=== PATIENT | female | born 1960 | race Caucasian/White ===

== ENCOUNTER → 2017-11-30 | Outpatient (CLI) | payer BC ==
--- NOTE | 2017-11-30 12:22 | ECHOF ---
Referral Reason:R06.00 Dyspnea MEASUREMENTS -------- HEIGHT: 157.5 cm WEIGHT: 49.0 kg BP: RVIDd: 2.1 cm (< 3.3) IVSd: 0.8 cm (0.6 - 1.1) LVIDd: 3.3 cm (3.9 - 5.3) LVPWd: 0.8 cm (0.6 - 1.1) IVSs: 0.8 cm LVIDs: 2.8 cm LVPWs: 1.1 cm LA Diam: 1.9 cm (2.7 - 3.8) Ao Diam: 2.8 cm (2.0 - 3.7) AV Cusp: 1.8 cm (1.5 - 2.6) LA Diam: 3.0 cm (2.7 - 3.8) EPSS: 0.3 cm MV E Ron: 0.68 m/s MV DecT: 158 ms MV A Ron: 0.51 m/s MV E/A Ratio: 1.34 RAP: 5.00 mmHg RVSP: 26.41 mmHg MV EF SLOPE: 61.00 mm/s (70 - 150) MV EXCURSION: 2.22 cm (> 18.000) FINDINGS -------- Sinus rhythm. This was a technically adequate study. Pt. Has Breast inplants LV size, wall thickness and systolic function are normal, with an EF greater than 55%. The left zheng tricular size is normal. The right ventricle is normal in size. The left atrial size is normal. The right atrial size is normal. The aortic valve is trileaflet, and appears structurally normal. No aortic stenosis or regurgitation. Mild mitral regurgitation is present. Mild tricuspid regurgitation present. There is no evidence of pulmonary hypertension. The right v entricular systolic pressure, as measured by Doppler, is 26.41mmHg. There is no pulmonic regurgitation present. The aortic root size is normal. There is no pericardial effusion. CONCLUSIONS -------- 1. Sinus rhythm. 2. Pt. Has Breast inplants 3. LV size, wall thickness and systolic function are normal, with an EF greater than 55%. 4. The left ventricular size is normal. 5. The right ventricle is normal in size. 6. The left atrial size is normal. 7. The right atrial size is normal. 8. The aortic valve is trileaflet, and appears structurally normal. No aortic stenosis or regurgitati on. 9. Mild mitral regurgitation is present. 10. Mild tricuspid regurgitation present. 11. There is no evidence of pulmonary hypertension. 12. The right ventricular systolic pressure, as measured by Doppler, is 26.41mmHg. 13. There is no pulmonic regurgitation present. 14. The aortic root size is normal. 15. There is no pericardial effusion. EXTERMINATOR TERMITE: Danica Sage RDCS
--- NOTE | 2017-11-30 12:38 | EST ---
EXERCISE STRESS DATE OF SERVICE: 11/30/2017 AGE: 57 SEX: Female HT: 5'2" WT: 108 PROTOCOL: Exercise treadmill stress test STAGE: IV DURATION OF EXERCISE: 12 minutes and 26 seconds HEART RATE REST: 70 BLOOD PRESSURE REST: 108/69 MAXIMUM HEART RATE ACHIEVED: 166 MAXIMUM BLOOD PRESSURE: 182/97 85% MPHR: 139 100% MPHR: 164 METS: 12.5 INDICATIONS: Chest pain. CLINICAL INFORMATION: STRESS DATA: Pretesting physical examination showed a heart rate of 70. Pressure is 108/69 mmHg. Baseline EKG showed sinus mechanism. The patient exercised on the treadmill according to Johnny protocol for a total of 12 minutes and 26 seconds and achieved 12.5 METs. Max heart rate is 166, which is about 100% of maximum predicted heart rate. Maximum blood pressure was 182/97 mmHg. Clinically, the patient did not have any symptoms of chest pain or chest discomfort during the testing or in the recovery phase. The EKG did not show any significant ST or T-wave abnormalities concerning for ischemia. CONCLUSION: 1. Excellent exercise capacity. 2. Normal EKG in response to exercise. 3. Essentially normal exercise treadmill stress test for the patient. MMODL / IJN: [id number] /
== END | disposition home or self-care (01) ==
LOC: RADNMMAIN 11:09
PROVIDERS: ATTEND Family Medicine
DX: I08.1 Rheumatic disorders of both mitral and tricuspid valves (principal); R06.00 Dyspnea, unspecified
CPT/HCPCS: 93017; 93306

== ENCOUNTER 2019-04-20 13:06 | Observation (INO) | payer BC ==
[2019-04-20] MEDS ORDERED: SODIUM CHLORIDE 0.9% 1,000 ML IV STA (14:13)
[2019-04-20] MEDS ORDERED: DIPH,PERTUS(ACELL)TETVAC-LF 0.5 ML VIAL IM ONE (14:14)
--- NOTE | 2019-04-20 14:18 | ED ---
General Adult HPI <Cooper Rodriguez P - Last Filed: 04/20/19 15:16> - General Source: patient, family, RN notes reviewed Mode of arrival: ambulatory Limitations: no limitations <Edy Marie - Last Filed: 04/20/19 16:12> - General Chief complaint: Fall Stated complaint: syncope/facial injury Time Seen by Provider: 04/20/19 13:56 - History of Present Illness Initial comments: Patient is a pleasant 58-year-old female presenting to the emergency Department with complaints of syncopal episode. Episode occurred around 6 AM. Patient got up to go the bathroom and did not feel well. After using the bathroom patient still did not feel well. Patient still feels slightly unwell. Patient states symptoms are mild and hard to describe. Patient feels a little bit lightheaded and fatigued. Patient had a syncopal episode after using the restroom. Patient did sustain facial injury when she fell. Patient is unclear how long she was lying on the floor 4. No chest pain or dyspnea. No abdominal or back pain. No history of similar episode previously. Unclear last tetanus immunization. (Edy Sánchez) - Related Data Allergies Allergy/AdvReac Type Severity Reaction Status Date / Time No Known Allergies Allergy Verified 04/20/19 13:42 Review of Systems ROS Other: All systems not noted in ROS Statement are negative. <Cooper Rodriguez P - Last Filed: 04/20/19 15:16> ROS Other: All systems not noted in ROS Statement are negative. Constitutional: Denies: fever Eyes: Denies: eye pain ENT: Denies: ear pain Respiratory: Reports: cough (Minimal cough past few days). Denies: dyspnea Cardiovascular: Denies: chest pain Endocrine: Reports: fatigue Gastrointestinal: Denies: abdominal pain Genitourinary: Denies: dysuria Musculoskeletal: Denies: back pain Skin: Denies: rash Neurological: Denies: headache, confusion <Edy Marie - Last Filed: 04/20/19 16:12> ROS Statement: Those systems with pertinent positive or pertinent negative responses have been documented in the HPI. 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 History of Any Multi-Drug Resistant Organisms: None Reported Past Surgical History: Appendectomy, Breast Surgery Additional Past Surgical History / Comment(s): colonoscopy Past Psychological History: No Psychological Hx Reported Smoking Status: Never smoker Past Alcohol Use History: None Reported Past Drug Use History: None Reported <Edy Marie - Last Filed: 04/20/19 16:12> General Exam Limitations: no limitations General appearance: alert, in no apparent distress Head exam: Present: other (Forehead and nasal soft tissue swelling and tenderness) Eye exam: Present: normal appearance, PERRL, EOMI. Absent: nystagmus ENT exam: Present: normal oropharynx Neck exam: Present: normal inspection. Absent: tenderness Respiratory exam: Present: normal lung sounds bilaterally Cardiovascular Exam: Present: regular rate, normal rhythm Expanded Peripheral pulses: 2+: Radial (R), Radial (L), Posterior Tibialis (R), Posterior Tibialis (L), Dorsalis Pedis (R), Dorsalis Pedis (L) GI/Abdominal exam: Present: soft. Absent: tenderness Extremities exam: Present: normal inspection. Absent: pedal edema, calf tenderness Neurological exam: Present: alert, oriented X3, CN II-XII intact. Absent: motor sensory deficit Expanded Neurological exam: Present: protecting the airway Speech: Present: fluid speech Cranial nerves: EOM's Intact: Normal Motor strength exam: RUE: 5, LUE: 5, RLE: 5, LLE: 5 Eye Response: (4) open spontaneously Motor Response: (6) obeys commands Verbal Response: (5) oriented Psychiatric exam: Present: normal affect, normal mood Skin exam: Present: normal color, other (NaSal and paranasal ecchymosis) <Edy Marie - Last Filed: 04/20/19 16:12> Course Vital Signs 04/20/19 13:38 Temperature 97.1 F L Pulse Rate 72 Respiratory 16 Rate Blood Pressure 120/73 O2 Sat by Pulse 100 Oximetry EKG Findings - EKG Comments: EKG Findings:: Normal sinus rhythm 78. NJ 144. QRS 74. QT 402. QTC 458. Normal axis. Normal QRS. No acute ST change. <Edy Marie - Last Filed: 04/20/19 16:12> Procedures - Laceration Laceration #1 Consent Obtained: verbal consent Indication: laceration Site: lip Size (cm): 2 Description: stellate Depth: simple, single layer Anesthetic Used: lidocaine 1% Anesthesia Technique: nerve block (infraorbital) Pre-repair: wound explored, irrigated extensively Type of Sutures: vicryl Size of Sutures: 5-0 Number of Sutures: 2 Technique: simple, interrupted Patient Tolerated Procedure: well, no complications <Cooper Rodriguez - Last Filed: 04/20/19 15:16> Medical Decision Making - Lab Data Result diagrams: 04/20/19 14:18 04/20/19 14:18 <Cooper Rodriguez - Last Filed: 04/20/19 15:16> - Lab Data Result diagrams: 04/20/19 14:18 04/20/19 14:18 - Radiology Data Radiology results: report reviewed (Computed tomography scan of the brain and facial bones shows no acute traumatic process. Forehead hematoma.), image reviewed (Chest x-ray shows no acute process) <Edy Marie - Last Filed: 04/20/19 16:12> - Medical Decision Making Patient reevaluated and resting comfortably in bed. Case was discussed in detail with Dr. shannon nelson, who will admit for observation for monitoring and echo in the morning, covering for Dr. Tate, who admits for Dr. Rodgers. (Edy Marie) - Lab Data Lab Results 04/20/19 04/20/19 04/20/19 Range/Units 14:18 14:18 14:18 WBC 4.5 (3.8-10.6) k/uL RBC 4.30 (3.80-5.40) m/uL Hgb 13.3 (11.4-16.0) gm/dL Hct 38.7 (34.0-46.0) % MCV 90.1 (80.0-100.0) fL MCH 30.9 (25.0-35.0) pg MCHC 34.3 (31.0-37.0) g/dL RDW 13.8 (11.5-15.5) % Plt Count 139 L (150-450) k/uL Neutrophils % 70 % Lymphocytes % 17 % Monocytes % 10 % Eosinophils % 1 % Basophils % 1 % Neutrophils # 3.1 (1.3-7.7) k/uL Lymphocytes # 0.7 L (1.0-4.8) k/uL Monocytes # 0.4 (0-1.0) k/uL Eosinophils # 0.0 (0-0.7) k/uL Basophils # 0.0 (0-0.2) k/uL PT 10.1 (9.0-12.0) sec INR 0.9 (<1.2) APTT 26.2 (22.0-30.0) sec Sodium 138 (137-145) mmol/L Potassium 4.1 (3.5-5.1) mmol/L Chloride 101 (98-107) mmol/L Carbon Dioxide 29 (22-30) mmol/L Anion Gap 8 mmol/L BUN 17 (7-17) mg/dL Creatinine 0.82 (0.52-1.04) mg/dL Est GFR (CKD-EPI)AfAm >90 (>60 ml/min/1.73 sqM) Est GFR (CKD-EPI)NonAf 80 (>60 ml/min/1.73 sqM) Glucose 84 (74-99) mg/dL Calcium 9.2 (8.4-10.2) mg/dL Magnesium 1.9 (1.6-2.3) mg/dL Total Bilirubin 0.4 (0.2-1.3) mg/dL AST 38 H (14-36) U/L ALT 19 (4-34) U/L Alkaline Phosphatase 98 (38-126) U/L Troponin I (0.000-0.034) ng/mL Total Protein 6.9 (6.3-8.2) g/dL Albumin 4.0 (3.5-5.0) g/dL 04/20/19 Range/Units 14:18 WBC (3.8-10.6) k/uL RBC (3.80-5.40) m/uL Hgb (11.4-16.0) gm/dL Hct (34.0-46.0) % MCV (80.0-100.0) fL MCH (25.0-35.0) pg MCHC (31.0-37.0) g/dL RDW (11.5-15.5) % Plt Count (150-450) k/uL Neutrophils % % Lymphocytes % % Monocytes % % Eosinophils % % Basophils % % Neutrophils # (1.3-7.7) k/uL Lymphocytes # (1.0-4.8) k/uL Monocytes # (0-1.0) k/uL Eosinophils # (0-0.7) k/uL Basophils # (0-0.2) k/uL PT (9.0-12.0) sec INR (<1.2) APTT (22.0-30.0) sec Sodium (137-145) mmol/L Potassium (3.5-5.1) mmol/L Chloride (98-107) mmol/L Carbon Dioxide (22-30) mmol/L Anion Gap mmol/L BUN (7-17) mg/dL Creatinine (0.52-1.04) mg/dL Est GFR (CKD-EPI)AfAm (>60 ml/min/1.73 sqM) Est GFR (CKD-EPI)NonAf (>60 ml/min/1.73 sqM) Glucose (74-99) mg/dL Calcium (8.4-10.2) mg/dL Magnesium (1.6-2.3) mg/dL Total Bilirubin (0.2-1.3) mg/dL AST (14-36) U/L ALT (4-34) U/L Alkaline Phosphatase (38-126) U/L Troponin I <0.012 (0.000-0.034) ng/mL Total Protein (6.3-8.2) g/dL Albumin (3.5-5.0) g/dL Disposition <Cooper Rodriguez - Last Filed: 04/20/19 15:16> Is patient prescribed a controlled substance at d/c from ED?: No Decision Time: 16:12 <Edy Marie - Last Filed: 04/20/19 16:12> Clinical Impression: Syncope Disposition: ADMITTED IP TO THIS HOSP Referrals: Dennis Rodgers MD [Primary Care Provider] - 1-2 days
[2019-04-20 14:27] LABS: Basophils % (A) 1 %; Eosinophils % (A) 1 %; HCT 38.7 % (34.0-46.0); HGB 13.3 gm/dL (11.4-16.0); Lymphocytes # (A) 0.7 k/uL (1.0-4.8); Lymphocytes % (A) 17 %; MCH 30.9 pg (25.0-35.0); MCHC 34.3 g/dL (31.0-37.0); MCV 90.1 fL (80.0-100.0); Mean Platelet Volume 7.7; Monocytes # (A) 0.4 k/uL (0-1.0); Monocytes % (A) 10 %; Neutrophils # (A) 3.1 k/uL (1.3-7.7); Neutrophils % (A) 70 %; Platelet Count 139 k/uL (150-450); RDW 13.8 % (11.5-15.5); WBC 4.5 k/uL (3.8-10.6)
[2019-04-20 14:35] LABS: INR 0.9 (<1.2); Partial Thromboplastin Time 26.2 sec (22.0-30.0); Prothrombin Time 10.1 sec (9.0-12.0)
[2019-04-20 14:37] LABS: ALT 19 U/L (4-34); AST 38 U/L (14-36); African American GFR (CKD) >90 (>60 ml/min/1.73 sqM); Alkaline Phosphatase 98 U/L (38-126); Anion Gap 8 mmol/L; Blood Urea Nitrogen 17 mg/dL (7-17); Calcium 9.2 mg/dL (8.4-10.2); Carbon Dioxide 29 mmol/L (22-30); Chloride 101 mmol/L (98-107); Glucose 84 mg/dL (74-99); Magnesium 1.9 mg/dL (1.6-2.3); Non-African American GFR(CKD) 80 (>60 ml/min/1.73 sqM); Potassium 4.1 mmol/L (3.5-5.1); Sodium 138 mmol/L (137-145); Total Bilirubin 0.4 mg/dL (0.2-1.3); Total Protein 6.9 g/dL (6.3-8.2)
[2019-04-20] MEDS ORDERED: LIDOCAINE 1% INJ 10MG/ML (20 ML MDV) SQ ONE (14:42)
--- NOTE | 2019-04-20 15:03 | CT ---
EXAMINATION TYPE: CT facial bones wo con DATE OF EXAM: 04/20/2019 COMPARISON: None HISTORY: syncopal episode, facial injury CT DLP: Included in brain mGycm Automated exposure control for dose reduction was used. The mandibular ring is intact. Temporomandibular joints are intact. Zygomatic arches appear normal. N lilian bone appears intact. The orbital margins are intact. There is small mucus retention cyst anterio r right maxillary sinus. There is no evidence of a blowout fracture. There is no evidence of retro-or bital mass. There is soft tissue swelling anterior to the right orbit and frontal bone. There is norm al aeration of the temporal bones. IMPRESSION: There is right frontal scalp soft tissue swelling consistent with hematoma. No fracture seen.
--- NOTE | 2019-04-20 15:06 | CT ---
EXAMINATION TYPE: CT brain wo con DATE OF EXAM: 04/20/2019 COMPARISON: HISTORY: Syncopal episode, facial injury CT DLP: 1398.6 mGycm Automated exposure control for dose reduction was used. Exam performed with no contrast. Ventricles and sulci appear normal. There is no mass effect nor midline shift. There is no sign of in tracranial hemorrhage. The calvarium is intact. There is right frontal scalp soft tissue swelling. Sk ull base is intact. IMPRESSION: Negative CT scan of the brain.
--- NOTE | 2019-04-20 15:07 | XR ---
EXAMINATION TYPE: XR chest 2V DATE OF EXAM: 04/20/2019 COMPARISON: NONE HISTORY: Syncope. Fall. TECHNIQUE: 2 views FINDINGS: Heart and mediastinum are normal. Lungs are clear. Diaphragm is normal. Bony thorax appears normal. There are chest leads. IMPRESSION: Normal chest.
[2019-04-20] MEDS ORDERED: NALOXONE 0.4 MG/ML 1 ML VIAL IV PRN ×2 (16:12→16:44)
[2019-04-20] MEDS: SODIUM CHLORIDE 0.9% 1,000 ML IV SCH (16:26)
[2019-04-20] MEDS ORDERED: ACETAMINOPHEN TAB 325 MG TAB PO PRN (16:44)
[2019-04-20] MEDS ORDERED: ONDANSETRON 4 MG/2 ML VIAL IVP PRN (16:44)
[2019-04-20] MEDS ORDERED: LORazepam 2 MG/ML INJ IV ONE (17:00)
--- NOTE | 2019-04-20 17:02 | P.HPIM ---
History of Present Illness H&P Date: 04/20/19 Chief Complaint: Syncope 58-year-old female presenting to the emergency Department with complaints of syncopal episode. Episode occurred around 6 AM. Patient got up to go the bathroom and passed out, fell on the bathroom floor. Over the past 3 days she has been having a cold, she states that she took cold medicine last night, slept well, woke up at 6 AM feeling unwell. He does not remember exactly what happened or how long she passed out for. She doesn't recall any symptoms before the syncopal event. She denied having chest pain or shortness of breath, no palpitations. She denied tongue biting or urinary or stool incontinence. After she woke up she started throwing up and had one episode of diarrhea. She is not sure what color the vomit or the stools was because it was dark. No abdominal pain. She stated that she felt numb on the right side of the face but that was the side where she landed after she fell. She denies focal weakness or numbness, no blurry vision, no vision, no slurred speech. 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 In the emergency department she had a head CT, facial CT, chest x-ray, EKG and basic labs, all normal. 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 History of Any Multi-Drug Resistant Organisms: None Reported Past Surgical History: Appendectomy, Breast Surgery Additional Past Surgical History / Comment(s): colonoscopy Past Psychological History: No Psychological Hx Reported Smoking Status: Never smoker Past Alcohol Use History: None Reported Past Drug Use History: None Reported Medications and Allergies Home Medications Medication Instructions Recorded Confirmed Type Levothyroxine Sodium [Synthroid] 25 mcg PO DAILY 04/20/19 04/20/19 History Minocycline HCl [Minocin] 100 mg PO HS 04/20/19 04/20/19 History Allergies Allergy/AdvReac Type Severity Reaction Status Date / Time No Known Allergies Allergy Verified 04/20/19 16:38 Physical Exam Vitals: Vital Signs Temp Pulse Resp BP Pulse Ox 04/20/19 13:38 97.1 F L 72 16 120/73 100 Intake and Output 04/20/19 04/20/19 04/20/19 06:59 14:59 22:59 Other: Weight 49.895 kg Constitutional: No acute distress, conversant, pleasant Eyes:Anicteric sclerae, moist conjunctiva, no lid-lag, PERRLA, ENMT: No bruising evident on the right side of the face. Oropharynx clear, no erythema, exudates Neck: Supple, FROM, no masses, or JVD, No carotid bruits, No thyromegaly Lungs: Clear to auscultation, Clear to percussion, Normal respiratory effort, no accessory muscle use Cardiovascular: Heart regular in rate and rhythm, No murmurs, gallops, or rubs, No peripheral edema Abdominal: Soft, Nontender, no guarding, rebound or rigidity, Normoactive bowel sounds, No hepatomegaly, No splenomegaly, No palpable mass Skin: Normal temperature, tone, texture, turgor, no induration, No subcutaneous nodules, No rash, lesions, No ulcers Extremities: No digital cyanosis, No clubbing, Pedal pulses intact and symmetrical, Radial pulses intact and symmetrical, No calf tenderness Psychiatric: Alert and oriented to person, place and time, appropriate affect, intact judgement Neuro: Muscles Strength 5/5 in all 4 extremities, Sensation to light touch grossly present throughout, Cranial nerves II-XII grossly intact, no focal sensory deficits Results CBC & Chem 7: 04/20/19 14:18 04/20/19 14:18 Labs: Abnormal Lab Results - Last 24 Hours (Table) 04/20/19 04/20/19 Range/Units 14:18 14:18 Plt Count 139 L (150-450) k/uL Lymphocytes # 0.7 L (1.0-4.8) k/uL AST 38 H (14-36) U/L Assessment and Plan Plan: Syncope Admit to telemetry for observation Cycle troponins MRI brain, rule out stroke versus masses--patient claustrophobic ordered Ativan prior to MRI EEG to r/u seizures Neurology consultation Flulike symptoms, sore throat Lozenges Rockland's disease Hypothyroidism Stable Resume meds Patient admitted to observation, anticipated length of stay<2 midnights Anticipated disposition: home
[2019-04-20] MEDS: MAG HYDROX/AL HYDROX/SIMETH 30 ML, LIDOCAINE VISCOUS 30 ML, diphenhydrAMINE ELIXIR 75 M... PO SCH ×8 (17:22→23:56)
[2019-04-20 19:11] LABS: Appearance,Urine Clear (Clear); Bilirubin,Urine Negative (Negative); Blood,Urine Trace (Negative); Color,Urine Yellow; Glucose,Urine (UA) Negative (Negative); Ketones,Urine 2+ (Negative); Leukocyte Esterase,Urine Negative (Negative); Mucus,Urine Rare /hpf; Nitrite,Urine Negative (Negative); PH, Urine 6.5 (5.0-8.0); Protein,Urine Negative (Negative); RBC,Urine 4 /hpf (0-5); Specific Gravity,Urine 1.015 (1.001-1.035); Squamous Epithelial Cell,Urine <1 /hpf (0-4); Urobilinogen,Urine <2.0 mg/dL (<2.0); WBC,Urine 1 /hpf (0-5)
[2019-04-20] MEDS ORDERED: MINOCYCLINE 50 MG CAP PO SCH (21:00)
[2019-04-20 21:41] VITALS: RESP 18
[2019-04-21] MEDS ORDERED: LEVOTHYROXINE 25 MCG TAB PO SCH (06:30)
[2019-04-21 07:19] LABS: Basophils % (A) 0 %; Eosinophils % (A) 1 %; HCT 35.6 % (34.0-46.0); HGB 11.5 gm/dL (11.4-16.0); Lymphocytes # (A) 0.7 k/uL (1.0-4.8); Lymphocytes % (A) 21 %; MCH 29.5 pg (25.0-35.0); MCHC 32.4 g/dL (31.0-37.0); MCV 90.8 fL (80.0-100.0); Mean Platelet Volume 7.9; Monocytes # (A) 0.3 k/uL (0-1.0); Monocytes % (A) 9 %; Neutrophils # (A) 2.2 k/uL (1.3-7.7); Neutrophils % (A) 66 %; Platelet Count 138 k/uL (150-450); RBC 3.92 m/uL (3.80-5.40); RDW 13.8 % (11.5-15.5); WBC 3.3 k/uL (3.8-10.6)
[2019-04-21 07:41] LABS: ALT 17 U/L (4-34); AST 33 U/L (14-36); African American GFR (CKD) >90 (>60 ml/min/1.73 sqM); Albumin 3.3 g/dL (3.5-5.0); Alkaline Phosphatase 90 U/L (38-126); Anion Gap 4 mmol/L; Blood Urea Nitrogen 12 mg/dL (7-17); Calcium 8.5 mg/dL (8.4-10.2); Carbon Dioxide 29 mmol/L (22-30); Chloride 105 mmol/L (98-107); Glucose 78 mg/dL (74-99); Magnesium 1.9 mg/dL (1.6-2.3); Non-African American GFR(CKD) 86 (>60 ml/min/1.73 sqM); Phosphorus 3.4 mg/dL (2.5-4.5); Potassium 4.2 mmol/L (3.5-5.1); Sodium 138 mmol/L (137-145); Total Bilirubin 0.4 mg/dL (0.2-1.3); Total Protein 6.1 g/dL (6.3-8.2)
[2019-04-21] MEDS ORDERED: LORazepam 1 MG TAB PO PRN (08:03)
[2019-04-21] MEDS: MAG HYDROX/AL HYDROX/SIMETH 30 ML, LIDOCAINE VISCOUS 30 ML, diphenhydrAMINE ELIXIR 75 M... PO SCH ×8 (09:26→17:10)
--- NOTE | 2019-04-21 14:07 | MR ---
EXAMINATION TYPE: MR brain wo/w con DATE OF EXAM: 04/21/2019 COMPARISON: CT brain dated 04/20/2019 HISTORY: syncope TECHNIQUE: Multiplanar, multisequence images of the brain and brainstem is performed without and with IV contras t, utilizing 5 mL intravenous Gadavist . FINDINGS: Diffusion weighted images demonstrate no evidence of a recent infarct or other diffusion ab normality. There is no extra-axial fluid collection. Evaluation for white matter changes is suboptim al given motion on T2/FLAIR imaging and repeat T2/FLAIR imaging. The ventricular system and cisternal spaces are normal in size and appearance. The brain volume is age appropriate. Midline structures demonstrate normal morphology. The craniocervical junction appears within normal limits. Post contrast images demonstrate no abnormal enhancement. The dural venous sinuses appear pa tent. The visualized sinuses demonstrate a right maxillary 8mm mucosal retention cyst and mild mucosa l thickening of the ethmoid sinuses. The globes are intact. IMPRESSION: 1. No acute infarct, midline shift or mass effect. 2. No abnormal intracranial enhancement. 3. Markedly suboptimal evaluation for white matter change given patient motion on T2/FLAIR imaging an d repeat T2/FLAIR imaging. 4. Mild paranasal sinus disease.
--- NOTE | 2019-04-21 14:40 | EEG ---
ELECTROENCEPHALOGRAM REPORT PROCEDURE DATE: 04/21/2019 ELECTROENCEPHALOGRAM (EEG) REPORT: TECHNIQUE: A routine 18 channel EEG was performed with video using the 10/20 international electrode placement system. HISTORY: Syncope. CURRENT MEDICATIONS: Zofran, minocycline, Synthroid, Tylenol. STUDY DURATION: 25 minutes. FINDINGS: BACKGROUND: The background activity consisted of 9 to 10 Hz rhythmic waveforms symmetrically distributed over both posterior quadrants. ACTIVATION: Hyperventilation: Not performed. Photic stimulation: Symmetric driving seen. Sleep: Stages I and II sleep noted. ABNORMALITIES: None. Please note that 1 channel of this EEG was dedicated to EKG, it demonstrated a sinus rhythm. IMPRESSION: Normal EEG. No epileptiform activity was present. No seizures were recorded. MMODL / IJN: [id number] / MTDSophy
--- NOTE | 2019-04-21 15:01 | P.DS ---
Providers Date of admission: 04/20/19 16:13 Expected date of discharge: 04/21/19 Attending physician: Ramila López, Consults: 04/20/19 16:52 Consult Physician Routine Consulting Provider: Nathalie Haddad Consult Reason/Comments: syncope Do you want consulting provider notified?: Yes Primary care physician: [facility] Course: 58-year-old female with PMH of hypothyroidism presents the ED after syncopal episode. Patient states that she got up to use the washroom around 6 AM the morning of admission. She was able to sit down at the toilet seat and start urinating when she started to feel lightheadedness associated with nausea. Patient states that she was able to finish urinating and stood up and that is the last thing that she remembers. Patient states that she woke up in a pool of blood and was able to make her way back to her bed. There are no witnesses during the syncopal episode. Patient denies any bladder or bowel incontinence. Patient states that she was briefly confused when she regained consciousness but came to her senses quickly. She reports some numbness at the right lateral aspect of her lip where she had also cut her lip during the syncopal episode. CT face showed right frontal scalp soft tissue swelling consistent with hematoma. CT brain was negative. MRI brain was negative. Orthostats were negative. EEG was negative. Troponin was less than 0.0123 with EKG showing normal sinus rhythm. Neurology was consulted but they are unavailable today. Patient was seen and examined. No acute events overnight. Patient reports no dizziness since admission. She denies any chest pain, shortness of breath or palpitations. No nausea or vomiting. No fever or chills. She denies any dysphagia or difficulty speaking. is at bedside. She denies any numbness, weakness/tingling of her extremities. She denies any slurred speech. Wanting to go home. General: [non toxic], [no distress], [appears at stated age] Derm: [warm], [dry], [ecchymosis over the nasal bridge] Head: [atraumatic], [normocephalic], [symmetric] Eyes: [EOMI], [no lid lag], [anicteric sclera] Mouth: [no lip lesion], [mucus membranes moist] Cardiovascular: [S1S2 reg], [no murmur], [positive DP pulse bilateral] Lungs: [CTA bilateral], [no rhonchi, no rales] , [no accessory muscle use] Abdominal: [soft], [ nontender to palpation], [no guarding], [no appreciable organomegaly] Ext: [no gross muscle atrophy], [no edema], [no contractures] Neuro: [no focal neuro deficits] Psych: [Alert], [oriented], [appropriate affect] Syncopal episode likely vasovagal Hypothyroidism Diarrhea likely related to minocycline use Rector's disease Orthostats negative. CT brain and MRI brain negative. ACS ruled out. EEG negative. Likely vasovagal given description of symptoms. Plans: Workup benign thus far. Likely related to vasovagal. Follow-up echocardiogram. Plans: Resume Synthroid. Plans: Discontinue minocycline. Follow-up PCP. Plans: Discontinue minocycline. Follow-up PCP. [Patient admitted after syncopal episode. Thought to be vasovagal. Workup negative so far. Echocardiogram pending. DC today if echocardiogram within normal limits.] Pertinent Studies: Face CT, brain CT, chest x-ray, EEG, brain MRI, echocardiogram Patient Condition at Discharge: Stable Plan - Discharge Summary Discharge Rx Participant: No New Discharge Prescriptions: Continue Levothyroxine Sodium [Synthroid] 25 mcg PO DAILY Discontinued Minocycline HCl [Minocin] 100 mg PO HS Discharge Medication List Levothyroxine Sodium [Synthroid] 25 mcg PO DAILY 04/20/19 [History] Follow up Appointment(s)/Referral(s): Dennis Rodgers MD [Primary Care Provider] - 1-2 days
[2019-04-21 16:02] VITALS: BP 96/61; PULSE 87; TEMP 99
[2019-04-21] MEDS: SODIUM CHLORIDE 0.9% 1,000 ML IV SCH (17:10)
--- NOTE | 2019-04-21 17:54 | ECHOF ---
Referral Reason:syncope MEASUREMENTS -------- HEIGHT: 157.5 cm WEIGHT: 49.9 kg BP: 98/62 RVIDd: 2.5 cm (< 3.3) IVSd: 0.8 cm (0.6 - 1.1) LVIDd: 3.9 cm (3.9 - 5.3) LVPWd: 0.8 cm (0.6 - 1.1) IVSs: 1.3 cm LVIDs: 2.5 cm LVPWs: 1.2 cm LA Diam: 2.5 cm (2.7 - 3.8) LAESV Index (A-L): 18.45 ml/m Ao Diam: 2.7 cm (2.0 - 3.7) AV Cusp: 1.7 cm (1.5 - 2.6) MV EXCURSION: 13.601 mm (> 18.000) MV EF SLOPE: 102 mm/s (70 - 150) EPSS: 0.3 cm MV E Ron: 1.04 m/s MV DecT: 182 ms MV A Ron: 0.79 m/s MV E/A Ratio: 1.32 FINDINGS -------- Sinus rhythm. This was a technically adequate study. The left ventricular size is normal. Left ventricular wall thickness is normal. Overall left vent ricular systolic function is normal with, an EF between 55 - 60 %. The right ventricle is normal in size. Normal LA size by volume 22+/-6 ml/m2. The right atrial size is normal. Interatrial and interventricular septum intact. The aortic valve is trileaflet, and appears structurally normal. No aortic stenosis or regurgitation. The mitral valve is normal. There is trace to mild mitral regurgitation. The tricuspid valve appears structurally normal. Mild tricuspid regurgitation present. Trace/mild (physiologic) pulmonic regurgitation. The aortic root size is normal. Normal inferior vena cava with normal inspiratory collapse consistent with estimated right atrial pre ssure of 5 mmHg. There is no pericardial effusion. CONCLUSIONS -------- 1. Sinus rhythm. 2. This was a technically adequate study. 3. The left ventricular size is normal. 4. Left ventricular wall thickness is normal. 5. Overall left ventricular systolic function is normal with, an EF between 55 - 60 %. 6. Normal LA size by volume 22+/-6 ml/m2. 7. The aortic valve is trileaflet, and appears structurally normal. No aortic stenosis or regurgitati on. 8. There is trace to mild mitral regurgitation. 9. The tricuspid valve appears structurally normal. 10. Mild tricuspid regurgitation present. 11. Trace/mild (physiologic) pulmonic regurgitation. 12. There is no pericardial effusion. PROPELLER MECHANIC: Mery Montalvo RDCS
== END 2019-04-21 18:45 | disposition home or self-care (01) ==
LOC: EC 13:06 → 1SOBS 16:13
PROVIDERS: ADMIT Internal Medicine; ATTEND Internal Medicine
DX: R55 Syncope and collapse (principal); S01.511A Laceration without foreign body of lip, initial encounter; W18.30XA Fall on same level, unspecified, initial encounter; E03.9 Hypothyroidism, unspecified; L11.1 Transient acantholytic dermatosis [Grover]; F40.240 Claustrophobia; Z98.890 Other specified postprocedural states; Z79.890 Hormone replacement therapy
CPT/HCPCS: 96361 ×3; 90471; 96360; 99285; 36415; 95816; 93005; 93306; 80053 ×2; 83735 ×2; 84100; 84484 ×2; 85025 ×2; 85610; 85730; 81001; 71046; 70486; 70450; 70553; 90715; G0378 ×2; J2001; A9585

== ENCOUNTER → 2020-01-12 | Outpatient (CLI) | payer BC ==
[2020-01-12 13:04] LABS: Basophils % (A) 0 %; Eosinophils # (A) 0.1 k/uL (0-0.7); Eosinophils % (A) 1 %; HGB 12.8 gm/dL (11.4-16.0); Lymphocytes % (A) 15 %; MCV 90.7 fL (80.0-100.0); Mean Platelet Volume 8.2; Monocytes # (A) 0.3 k/uL (0-1.0); Monocytes % (A) 4 %; Neutrophils % (A) 78 %; Platelet Count 213 k/uL (150-450); RBC 4.41 m/uL (3.80-5.40); RDW 14.1 % (11.5-15.5); WBC 6.4 k/uL (3.8-10.6)
[2020-01-12 16:41] LABS: INR 0.95 (0.90-1.11); Prothrombin Time 10.2 sec (9.9-11.9)
[2020-01-12 19:54] LABS: Hemoglobin A1C 5.4 % (4.0-6.0)
[2020-01-12 20:05] LABS: % Iron Saturation 16.43 (12.00-45.00); ALT 16 U/L (8-44); AST 24 U/L (13-35); African American GFR (CKD) 94.2 (60.0-200.0); Albumin/Globulin Ratio 2.16 (1.60-3.17); Alkaline Phosphatase 119 U/L (41-126); Amylase 83 U/L (23-121); Carbon Dioxide 28.7 mmol/L (21.6-31.8); Chloride 106 mmol/L (96-109); Globulin 1.9 g/dL (1.6-3.3); Glucose 94 mg/dL (70-110); Iron 47 ug/dL (50-170); Non-African American GFR(CKD) 81.3 (60.0-200.0); Potassium 4.1 mmol/L (3.5-5.5); Sodium 142 mmol/L (135-145); Total Bilirubin 0.4 mg/dL (0.2-1.2); Total Iron Binding Capacity 286 ug/dL (228-460)
[2020-01-12 20:13] LABS: Ferritin 82.8 ng/mL (10.0-291.0)
[2020-01-12 20:29] LABS: Folate, Serum >24.0 ng/mL
[2020-01-13 10:16] LABS: APTT 44 Sec(s) (<43); APTT 1:1 Mix 41 Sec(s) (<43); DRVVT 1:1 Mix 38 Sec(s) (<44); Dilute Russell Viper Venom 47 Sec(s) (<44)
== END | disposition home or self-care (01) ==
LOC: LABWHC1 12:36
PROVIDERS: ATTEND Family Medicine
DX: Z00.00 Encounter for general adult medical examination without abnormal findings (principal); E03.9 Hypothyroidism, unspecified; R10.9 Unspecified abdominal pain; D50.9 Iron deficiency anemia, unspecified; D68.59 Other primary thrombophilia
CPT/HCPCS: 36415; 80053; 82150; 82607; 82728; 82746; 83036; 83540; 83550; 83690; 84439; 84443; 85025; 85610; 85613; 85730; 85732